=== PATIENT | female | born 1965 | race Two or more races ===

== ENCOUNTER → 2017-06-13 | Outpatient (CLI) | payer BC ==
--- NOTE | 2017-06-13 17:06 | MR ---
EXAMINATION TYPE: MR brain wo/w con DATE OF EXAM: 06/13/2017 COMPARISON: NONE HISTORY: 52-year-old female with dizziness and Giddiness / Other Visual Disturbances TECHNIQUE: Multiplanar, multisequence images of the brain and brainstem were acquired before and aft er administration of 20 mL IV MultiHance. Diffusion weighted imaging is performed. FINDINGS: No evidence for acute infarction, hemorrhage, mass, mass effect, midline shift, herniation, effacemen t of basal cisterns, or extra-axial fluid collection. The ventricles and sulci are age-appropriate. Major intracranial flow voids are intact. T-2/FLAIR weighted sequences show only a couple punctate 3 mm foci of bright signal subcortical regio n of the posterior left frontal lobe. Midline structures demonstrate normal morphology. Cerebellar tonsillar herniation measuring 3.6 mm on the right and 2.0 mm on the left. Otherwise, the craniocervical junction is normal. Post contrast images demonstrate no evidence of pathologic enhancement. Dural venous sinuses are pat ent. Trace mucosal thickening ethmoid air cells and maxillary sinuses. Globes are intact. IMPRESSION: 1. No acute intracranial abnormality seen. 2. Incidental benign cerebellar tonsillar ectopia measuring up to 3.6 mm. 3. Couple punctate bright white matter foci in the subcortical region of the left frontal lobe. These are nonspecific and most likely relate to trace burden of chronic small vessel ischemic disease. Chronic T2 bright white matter changes as described above.
== END | disposition home or self-care (01) ==
LOC: RADMRIMAIN 13:07
PROVIDERS: ATTEND Nurse Practitioner Family
DX: R90.89 Other abnormal findings on diagnostic imaging of central nervous system (principal); H53.8 Other visual disturbances; R42 Dizziness and giddiness
CPT/HCPCS: 70553; A9577

== ENCOUNTER → 2018-10-15 | Outpatient (CLI) | payer BC ==
--- NOTE | 2018-10-17 17:52 | US ---
EXAMINATION TYPE: US kidneys/renal and bladder DATE OF EXAM: 10/15/2018 COMPARISON: NONE CLINICAL HISTORY: R94.4Abnormal results of kidney function studies. EXAM MEASUREMENTS: Right Kidney: 8.4 x 3.9 x 4.9 cm Left Kidney: 10.7 x 5.6 x 4.7 cm Right Kidney: small in size, large irregular anechoic area, possible hydronephrosis vs. other Left Kidney: no hydronephrosis or nephrolithiasis seen Bladder: not fully distended Bilateral Jets seen: no IMPRESSION: 1. There is a suspected diminutive with significant right kidney with hydronephrosis. Given limitatio ns of the exam recommend CT scan. 2. Limited assessment of the bladder due to incomplete distention.
== END | disposition home or self-care (01) ==
LOC: RADUSWWP 16:09
PROVIDERS: ATTEND Family Medicine
DX: R94.4 Abnormal results of kidney function studies (principal)
CPT/HCPCS: 76770

== ENCOUNTER → 2018-11-23 | Outpatient (CLI) | payer BC ==
--- NOTE | 2018-11-23 09:20 | US ---
EXAMINATION TYPE: US kidneys/renal and bladder DATE OF EXAM: 11/23/2018 COMPARISON: Prior renal ultrasound October 15, 2018 CLINICAL HISTORY: N13.30 hydronephrosis right side. asymptomatic, f/u on hydronephrosis EXAM MEASUREMENTS: Right Kidney: 8.7 x 3.7 x 4.5 cm Left Kidney: 10.4 x 4.4 x 5.2 cm Right Kidney: extensive hydronephrosis seen Left Kidney: No hydronephrosis or masses seen Bladder: wnl Bilateral Jets seen: only the left There is persistent severe right-sided hydronephrosis. No left-sided hydronephrosis. No nephrolithia sis is seen. No masses are identified. The urinary bladder is not greatly distended. Distal right u reteral jet is not seen. Distal left jet is identified. IMPRESSION: Persistent severe right-sided hydronephrosis with nonvisualization of distal right ureter jet, no sig nificant change from prior ultrasound. Advise urology referral. Consider further investigation with f unctional study such as IVP, nuclear medicine study, or contrast-enhanced CT as obstructing ureter le gelacio needs to BE excluded and right-sided kidney function assessed.
== END | disposition home or self-care (01) ==
LOC: RADUSWWP 07:01
PROVIDERS: ATTEND Internal Medicine Nephrology
DX: N13.30 Unspecified hydronephrosis (principal)
CPT/HCPCS: 76770

== ENCOUNTER → 2018-12-23 | Outpatient (CLI) | payer BC ==
--- NOTE | 2018-12-23 14:35 | NM ---
EXAMINATION TYPE: NM renal flow and function DATE OF EXAM: 12/23/2018 COMPARISON: NONE HISTORY: Severe right-sided hydronephrosis. Following administration of 10.19 mCi Tc99m MAG3. Immediate images post injection. FINDINGS: Left: 94.4 %. Right: 5.649 %. Max renal flow left: 2.75 minutes. Max renal flow right: 5.649 minutes. Satisfactory accumulation of radiotracer within both renal collecting systems. T 1/2 left: 9.518 minutes. T 1/2 right: 0.934 minutes. FINDINGS: There is a nonfunctioning right kidney. Normal split renal function left kidney and 18 of one half ma x. IMPRESSION: Nonfunctioning right kidney.
== END | disposition home or self-care (01) ==
LOC: RADNMMAIN 12:48
PROVIDERS: ATTEND Urology
DX: N28.9 Disorder of kidney and ureter, unspecified (principal)
CPT/HCPCS: 78707; A9562

== ENCOUNTER → 2019-10-05 | Outpatient (CLI) | payer BC ==
--- NOTE | 2019-10-05 12:00 | EST ---
EXERCISE STRESS AGE: 54 SEX: F HT: 5'2" WT: 200 PROTOCOL: Hernan Stress Test STAGE: II DURATION OF EXERCISE: 6:31 HEART RATE REST: 82 BLOOD PRESSURE REST: 123/88 MAXIMUM HEART RATE ACHIEVED: 166 MAXIMUM BLOOD PRESSURE: 181/79 85% MPHR: 143 100% MPHR: 168 METS: 8.0 INDICATIONS: Chest pain. CLINICAL INFORMATION: Baseline EKG shows sinus rhythm, normal axis, normal intervals. Patient exercised on Hernan protocol for a total of 6.5 minutes achieving 8 METS, 99% of predicted maximal heart rate without chest pain or diagnostic ST-segment depression. Frequent PVCs were noted throughout the study. CONCLUSIONS: 1. Average exercise tolerance. 2. Negative stress test by EKG criteria. 3. Frequent premature ventricular contractions during exercise. MMIRVINL / IJN: [id number] /
== END | disposition home or self-care (01) ==
LOC: RADNMMAIN 08:29
PROVIDERS: ATTEND Family Medicine
DX: I49.3 Ventricular premature depolarization (principal)
CPT/HCPCS: 93017

== ENCOUNTER → 2020-11-28 | Outpatient (CLI) | payer BC ==
[2020-11-28 14:35] LABS: Appearance,Urine Clear (Clear); Bilirubin,Urine Negative (Negative); Blood,Urine Negative (Negative); Color,Urine Light Yellow; Glucose,Urine (UA) Negative (Negative); Ketones,Urine Negative (Negative); Leukocyte Esterase,Urine Negative (Negative); Nitrite,Urine Negative (Negative); Protein,Urine Negative (Negative); Specific Gravity,Urine 1.012 (1.001-1.035); Urobilinogen,Urine <2.0 mg/dL (<2.0)
[2020-11-28 15:21] LABS: HCT 39.5 % (34.0-46.0); HGB 13.6 gm/dL (11.4-16.0); MCH 29.8 pg (25.0-35.0); MCHC 34.5 g/dL (31.0-37.0); MCV 86.4 fL (80.0-100.0); Mean Platelet Volume 8.1; Platelet Count 208 k/uL (150-450); RBC 4.57 m/uL (3.80-5.40); RDW 12.5 % (11.5-15.5); WBC 5.3 k/uL (3.8-10.6)
[2020-11-28 17:33] LABS: Creatinine,Urine Random 86.9 mg/dL; Protein/Creatinine Ratio,Urine 0.092
[2020-11-28 20:17] LABS: African American GFR (CKD) 49.6 (60.0-200.0); Anion Gap 6.7 mmol/L (4.00-12.00); BUN/Creat Ratio 15.71 Ratio (12.00-20.00); Calcium 9.6 mg/dL (8.7-10.3); Carbon Dioxide 28.3 mmol/L (21.6-31.8); Magnesium 1.8 mg/dL (1.5-2.4); Non-African American GFR(CKD) 42.8 (60.0-200.0); Phosphorus 4.2 mg/dL (2.4-5.1); Potassium 4.4 mmol/L (3.5-5.5); Uric Acid 4.9 mg/dL (2.9-7.7)
== END | disposition home or self-care (01) ==
LOC: LABWHC1 12:36
PROVIDERS: ATTEND Nurse Practitioner Family
DX: N18.30 Chronic kidney disease, stage 3 unspecified (principal); E55.9 Vitamin D deficiency, unspecified; N39.0 Urinary tract infection, site not specified; R80.9 Proteinuria, unspecified; D63.1 Anemia in chronic kidney disease; N25.81 Secondary hyperparathyroidism of renal origin; M10.9 Gout, unspecified; R42 Dizziness and giddiness
CPT/HCPCS: 36415; 80048; 81003; 82306; 82570; 83735; 83970; 84100; 84156; 84439; 84443; 84550; 85027; 86618

== ENCOUNTER 2023-10-16 13:09 | Emergency (ER) | payer BC ==
[2023-10-16 14:23] VITALS: RESP 18; TEMP 98.3
--- NOTE | 2023-10-16 14:30 | XR ---
EXAMINATION TYPE: XR chest 2V DATE OF EXAM: 10/16/2023 2:26 PM CLINICAL INDICATION:Female, 58 years old with history of cough; COMPARISON: Chest radiographs from 01/12/2023 TECHNIQUE: XR chest 2V Frontal and lateral views of the chest. FINDINGS: Lungs/Pleura: There is no evidence of pleural effusion, focal consolidation, or pneumothorax. Pulmonary vascularity: Unremarkable. Heart/mediastinum: Cardiomediastinal silhouette is unremarkable. Musculoskeletal: No acute osseous pathology. IMPRESSION: No acute cardiopulmonary disease/process.
[2023-10-16] MEDS ORDERED: predniSONE 20 MG TAB PO STA (15:40)
[2023-10-16] MEDS ORDERED: AZITHROMYCIN 500 MG TAB PO STA (15:41)
--- NOTE | 2023-10-16 15:48 | ED ---
General Adult HPI - General Chief complaint: Recheck/Abnormal Lab/Rx Stated complaint: Hypertension-urgentcare sent Time Seen by Provider: 10/16/23 14:02 Source: patient, RN notes reviewed, old records reviewed Mode of arrival: ambulatory Limitations: no limitations - History of Present Illness Initial comments: Patient is a 58-year-old female with past medical history remarkable for asthma, mitral valve prolapse who presents emergency Department complaining of cough. He has been ongoing for 2-3 weeks. Does have chronic dyspnea which is unchanged from her baseline. Follows up cardiology regarding this. She also has a history of hypertension. His concern for upper respiratory infection for the last 2-3 weeks. Originally presented to urgent care and she was sent here over concern for mild hypertension which has a history of. Blood pressure was 150/90 approximately at urgent care. No symptoms of hypertension at this time including denying headaches, chest pain, blurry vision. Presents for further evaluation.Patient also has a history of asthma. - Related Data Home Medications Medication Instructions Recorded Confirmed Cholecalciferol [Vitamin D3 (25 25 mcg PO HS 01/12/23 01/12/23 Mcg = 1000 Iu)] Losartan [Cozaar] 25 mg PO DAILY 01/12/23 01/12/23 Rosuvastatin [Crestor] 10 mg PO HS 01/12/23 01/12/23 Previous Rx's Medication Instructions Recorded Azithromycin [Zithromax] 250 mg PO DAILY 4 Days #4 tab 10/16/23 predniSONE [Deltasone] 40 mg PO DAILY 5 Days #10 tab 10/16/23 Allergies Allergy/AdvReac Type Severity Reaction Status Date / Time No Known Allergies Allergy Verified 10/16/23 13:36 Review of Systems ROS Statement: Those systems with pertinent positive or pertinent negative responses have been documented in the HPI. Review of Systems: CONST: Denies fever EYES: Denies blurry vision ENT: Endorses nasal congestion C/V: Denies Chest pain RESP: Endorses cough GI: Denies abdominal pain : Denies dysuria SKIN: Denies rash. MSK: Denies joint pain. NEURO: Denies headache ROS Other: All systems not noted in ROS Statement are negative. Past Medical History Past Medical History: Hypertension Additional Past Medical History / Comment(s): mitral valve issues History of Any Multi-Drug Resistant Organisms: None Reported Past Surgical History: Hysterectomy, Tonsillectomy Past Psychological History: No Psychological Hx Reported Smoking Status: Never smoker Past Alcohol Use History: Occasional Past Drug Use History: None Reported General Exam - General Exam Comments Initial Comments: General: Appears in no acute distress. HEAD: Normal with no signs of head trauma. EYES: PERRLA, EOMI, conjunctiva normal, no discharge. ENT: Hearing grossly intact, normal oropharynx. RESPIRATORY: No hypoxia. No respiratory distress. Mild bilateral end expiratory wheezing. C/V: Regular rate and rhythm. S1 and S2 auscultated, no edema, peripheral pulses 2+ and intact throughout ABD: Abd is soft, nontender, nondistended EXT: Normal range of motion, no obvious deformity SKIN: No rashes or lesions observed on exposed skin. NEURO: Alert and oriented x 4. Limitations: no limitations Course Vital Signs 10/16/23 13:33 Temperature 98.3 F Pulse Rate 98 Respiratory 18 Rate Blood Pressure 153/93 O2 Sat by Pulse 100 Oximetry Medical Decision Making - Medical Decision Making Was pt. sent in by a medical professional or institution (, PA, SPED TEACHER, urgent care, hospital, or jail...) When possible be specific @ -Sent from urgent care for evaluation of mild hypertension. Did you speak to anyone other than the patient for history (EMS, parent, family, police, friend...)? What history was obtained from this source @ -No Did you review nursing and triage notes (agree or disagree)? Why? @ -I reviewed and agree with nursing and triage notes Were old charts reviewed (outside hosp., previous admission, EMS record, old EKG, old radiological studies, urgent care reports/EKG's, jail records)? Report findings @ -No old charts were reviewed Differential Diagnosis (chest pain, altered mental status, abdominal pain women, abdominal pain men, vaginal bleeding, weakness, fever, dyspnea, syncope, headache, dizziness, GI bleed, back pain, seizure, CVA, palpatations, mental health, musculoskeletal)? @ -URI, Covid infection, influenza infection, asthma exacerbation, pneumonia. This list is not all-inclusive. EKG interpreted by me (3pts min.). @ -As above X-rays interpreted by me (1pt min.). @ -Chest x-ray shows no obvious acute cardio pulmonary process. CT interpreted by me (1pt min.). @ -None done U/S interpreted by me (1pt. min.). @ -None done What testing was considered but not performed or refused? (CT, X-rays, U/S, labs)? Why? @ -None What meds were considered but not given or refused? Why? @ -None Did you discuss the management of the patient with other professionals (professionals i.e. , PA, SPED TEACHER, lab, RT, psych nurse, social secretary, airborne operations manager, teacher, custom protection officer, case aide)? Give summary @ -No Was smoking cessation discussed for >3mins.? @ -No Was critical care preformed (if so, how long)? @ -No Were there social determinants of health that impacted care today? How? (Homele ssness, low income, unemployed, alcoholism, drug addiction, transportation, low edu. Level, literacy, decrease access to med. care, retirement, rehab)? @ -No Was there de-escalation of care discussed even if they declined (Discuss DNR or withdrawal of care, Hospice)? DNR status @ -No What co-morbidities impacted this encounter? (DM, HTN, Smoking, COPD, CAD, Cancer, CVA, ARF, Chemo, Hep., AIDS, mental health diagnosis, sleep apnea, morbid obesity)? @ -None Was patient admitted / discharged? Hospital course, mention meds given and route, prescriptions, significant lab abnormalities, going to OR and other pertinent info. @ -Based on the patient's presentation and physical exam, presents with mild hypertension. Is asymptomatic. Is having upper respiratory infection symptoms. We will obtain viral swabs, chest x-ray. Screening EKG was also be obtained. Patient in agreement this am. She has a history of hypertension is a symptomatically did discuss this. She states she is compliant with medications and will follow up with PCP regarding this. Vital signs are within acceptable limits. Vital signs negative. Chest x-ray unremarkable. After the patient. Due to her history of asthma, we will start the patient on antibiotics for tracheal bronchitis as well as place patient on his own. Recommended strict follow-up precautions and return precautions. Patient in agreement this plan patient will be discharged, this time. I will provide the patient with a prescription for prednisone, azithromycin. I instructed the patient to follow up with their PCP in the next 1-3 days. I explained that the patient should return to the emergency department if they experience any worsening symptoms. Strict return precautions were discussed with the patient. The patient expressed understanding of these instructions. I answered all questions that the patient had. The patient was discharged home in good condition with their prescriptions and follow up information. Undiagnosed new problem with uncertain prognosis? @ -No Drug Therapy requiring intensive monitoring for toxicity (Heparin, Nitro, Insulin, Cardizem)? @ -No Were any procedures done? @ -No Diagnosis/symptom? @ -Tracheobronchitis, hypertension Acute, or Chronic, or Acute on Chronic? @ -Acute Uncomplicated (without systemic symptoms) or Complicated (systemic symptoms)? @ -Uncomplicated Side effects of treatment? @ -No Exacerbation, Progression, or Severe Exacerbation? @ -No Poses a threat to life or bodily function? How? (Chest pain, [place], [place], pneumonia, PE, COPD, DKA, ARF, appy, cholecystitis, CVA, Diverticulitis, Homicidal, Suicidal, threat to staff... and all critical care pts) @ -No - Lab Data Lab Results 10/16/23 Range/Units 14:15 Influenza Type A (PCR) Not Detected (Not Detectd) Influenza Type B (PCR) Not Detected (Not Detectd) RSV (PCR) Not Detected (Not Detectd) SARS-CoV-2 (PCR) Not Detected (Not Detectd) - EKG Data -: EKG Interpreted by Me EKG Comments: 12-lead Electrocardiogram Interpretation Note EKG was reviewed and interpreted by myself. 12-lead ECG performed at 1459 is interpreted by me as revealing normal sinus rhythm at a rate of 91 beats per minute. [place] is normal. CT interval is 159 ms, QRS duration is 90 ms, QTc is 389 ms.. There were no ST or T wave abnormalities to suggest myocardial ischemia or injury. R wave progression across the precordium was satisfactory. By my interpretation this EKG is non-diagnostic for acute ischemia. Disposition Clinical Impression: Tracheobronchitis, Hypertension Disposition: HOME SELF-CARE Condition: Good Prescriptions: predniSONE [Deltasone] 40 mg PO DAILY 5 Days #10 tab Azithromycin [Zithromax] 250 mg PO DAILY 4 Days #4 tab Is patient prescribed a controlled substance at d/c from ED?: No Referrals: Ketan Ann DO [Primary Care Provider] - 1-2 days Time of Disposition: 15:38
[2023-10-16 16:49] VITALS: BP 180/95; PULSE 85
== END 2023-10-16 16:43 | disposition home or self-care (01) ==
LOC: EC 13:09
DX: I10 Essential (primary) hypertension (principal); J40 Bronchitis, not specified as acute or chronic; Z79.899 Other long term (current) drug therapy; Z20.822 Contact with and (suspected) exposure to COVID-19
CPT/HCPCS: 93005; 87636; 71046; 99284; J7512